=== PATIENT | female | born 1945 | race Asian ===

== ENCOUNTER 2020-01-11 20:16 | Emergency (ER) | payer OTHER ==
[~2020-01-11] VITALS: Ht 154.9 cm; Wt 54.4 kg
[2020-01-11 20:18] VITALS: BP 170/93
--- NOTE | 2020-01-11 20:20 | NUR ---
LABS DRAWN FROM IV START AND HANDED TO FORM GRADER
[2020-01-11] MEDS ORDERED: METOCLOPRAMIDE 10 MG/2 ML INJ VIAL IVP ONE (20:25)
--- NOTE | 2020-01-11 20:36 | NUR ---
XRAY AT BEDSIDE
[2020-01-11 20:43] LABS: BASOPHILS % (AUTO) 0.8 % (0.0-2.0); EOSINOPHILS # (AUTO) 0.2 K/uL (0-0.4); EOSINOPHILS % (AUTO) 4.5 % (0.0-4.0); HEMATOCRIT 32.5 % (36-48); HEMOGLOBIN 11.2 g/dL (12.0-16.0); LYMPHOCYTES # (AUTO) 1.8 K/uL (2.5-16.5); LYMPHOCYTES % (AUTO) 35.3 % (20.5-51.1); MEAN CORPUSCULAR HEMOGLOBIN 32 pg (27-31); MEAN CORPUSCULAR HGB CONC 35 g/dL (33-37); MONOCYTES # (AUTO) 0.3 K/uL (0.8-1.0); MONOCYTES % (AUTO) 6.7 % (1.7-9.3); NEUTROPHILS # (AUTO) 2.7 K/uL (1.8-7.7); NEUTROPHILS % (AUTO) 52.7 % (42.2-75.2); PLATELET COUNT (AUTO) 244 K/uL (140-450); RED BLOOD CELL COUNT(AUTO) 3.57 MIL/uL (4.20-5.40); RED CELL DISTRIBUTION WIDTH 12.3 % (11.6-13.7); WHITE BLOOD COUNT (AUTO) 5.1 K/uL (4.8-10.8)
--- NOTE | 2020-01-11 20:51 | NUR ---
74 Y/O FEMALE C/O HEART HURTING SECONDARY TO HER HTN ; +N/V; DENIES DIARRHEA; SKIN IS PINK/WARM/DRY; AAOX4 ; HR EVEN AND REGULAR; PT DENIES ANY FEVER, SOB, OR COUGH AT THIS TIME; PATIENT STATES PAIN OF 8/10 AT THIS TIME; VSS; PATIENT POSITIONED FOR COMFORT; HOB ELEVATED; BEDRAILS UP X2; BED DOWN AND LOCKED. ER MD MADE AWARE OF PT STATUS. PMH: GERD/HTN/HLD/BOWEL ISSUES [facility]
[2020-01-11 20:56] LABS: ANION GAP 14.8 (8-16); ASPARTATE AMINOTRANSFERASE 20 U/L (15-37); CARBON DIOXIDE 26.3 mmol/L (21-32); CHLORIDE 99 mmol/L (98-107); CREATININE 0.7 mg/dL (0.6-1.3); GLUCOSE 132 mg/dL (74-106); LIPASE 140 U/L (73-393); POTASSIUM 3.1 mmol/L (3.5-5.1); SODIUM SERUM 137 mmol/L (136-145); TOTAL BILIRUBIN 0.3 mg/dL (0.0-1.0); UREA NITROGEN, BLOOD 11 mg/dL (7-18)
--- NOTE | 2020-01-11 21:36 | NUR ---
[facility]) [phone]
[2020-01-11] MEDS ORDERED: levETIRAcetam 1,000 MG in NACL 0.9% 100 ML IV ONE (22:15)
--- NOTE | 2020-01-11 22:20 | NUR ---
SPEAKING WITH LITO GALLEGOS)
[2020-01-11] MEDS ORDERED: LABETALOL 100 MG/20 ML VIAL IVP ONE (22:30)
[2020-01-11] MEDS ORDERED: levETIRAcetam 100 MG/ML VIAL IV ONE (22:30)
[2020-01-11 22:38] LABS: PROTHROMBIN TIME 9.9 secs (10.8-13.4)
--- NOTE | 2020-01-11 22:45 | NUR ---
PHONED ILIANA ALVAREZ, GAVE REPORT TO [facility]EE[facility] FOR PT BEING TRANSFERRED FOR HIGHER LEVEL OF CARE. INFORMED [facility]EEPTI [facility] JUST ARRIVED AND PT WILL BE TRANSPORTED [facility] .
--- NOTE | 2020-01-11 22:51 | NUR ---
EKG PERFORMED AT BEDSIDE
[2020-01-11 23:00] VITALS: BP 137/68
--- NOTE | 2020-01-11 23:00 | NUR ---
Patient to be transferred to [facility]. Is being transferred due to INTRACRANIAL BLEED. Receiving facility has accepting physician and available space. ER physician has signed transfer form. Patient or responsible republican has agreed to transfer and signed form. Patient belongings inventoried and will be sent with patient. Copy of nursing notes, lab reports, EKG, Physicians Orders and X-rays to be sent with patient. Report called to [facility] at receiving facility. [facility] ambulance service has been called for transfer. ETA is 30-40MIN.
--- NOTE | 2020-01-11 23:00 | NUR ---
PT TRASPORTED TO [facility]IA [facility] . BELONGINGS SENT WITH PT .
== END 2020-01-11 23:00 | disposition home or self-care (01) ==
LOC: MED 20:16
DX: I61.9 Nontraumatic intracerebral hemorrhage, unspecified (principal); I10 Essential (primary) hypertension; K21.9 Gastro-esophageal reflux disease without esophagitis
CPT/HCPCS: 36415; 70450; 71045; 80053; 83690; 84484; 85025; 85610; 93005; 96365; 96375; 99291; J1953; J2765; J3490; Q0092